=== PATIENT | male | born 1960 | race Caucasian/White ===

== ENCOUNTER 2017-08-22 07:22 | Inpatient (IN) | payer OTHER ==
[~2017-08-22] VITALS: Ht 167.6 cm; Wt 46.7 kg
[2017-08-22] MEDS ORDERED: LACTATED RINGERS 1,000 ML IV SCH (08:11)
[2017-08-22] MEDS ORDERED: LIDOCAINE 1%, 2ML SQ PRN (08:30)
[2017-08-22] MEDS ORDERED: MIDAZOLAM 1 MG/ML, 2ML ONE (08:32)
[2017-08-22] MEDS ORDERED: FENTANYL PF 250 MCG/5ML ONE (08:32)
[2017-08-22] MEDS ORDERED: LABETALOL 5MG/ML, 20ML IV PRN (09:00)
[2017-08-22] MEDS ORDERED: METOCLOPRAMIDE 5 MG/ML, 2ML IV PRN (09:00)
[2017-08-22] MEDS ORDERED: OXYcodone 5 MG/5 ML ORAL.SOL UDC PO PRN (09:00)
[2017-08-22] MEDS ORDERED: ACETAMINOPHEN 325 MG TABLET PO PRN (09:00)
[2017-08-22] MEDS ORDERED: hydrALAzine 20 MG/ML, 1ML IV PRN (09:00)
[2017-08-22] MEDS ORDERED: ONDANSETRON 2MG/ML, 2ML IVPush PRN (09:00)
[2017-08-22] MEDS ORDERED: HYDROmorphone 1 MG/ML, 1ML IV PRN (09:00)
[2017-08-22] MEDS ORDERED: FENTANYL PF 100 MCG/2ML IV PRN (09:00)
[2017-08-22] MEDS ORDERED: EPINEPHRINE 1 MG/ML, 1ML ONE (09:07)
[2017-08-22] MEDS ORDERED: BUPIVACAINE/PF 0.5% ONE (09:07)
[2017-08-22] MEDS ORDERED: ONDANSETRON 2MG/ML, 2ML ONE (09:43)
[2017-08-22] MEDS ORDERED: ROCURONIUM 10 MG/ML,10ML ONE (09:43)
[2017-08-22] MEDS ORDERED: CEFAZOLIN 1,000 MG ONE (09:43)
[2017-08-22] MEDS ORDERED: PROPOFOL 10 MG/ML, 20ML ONE (09:43)
[2017-08-22] MEDS ORDERED: DEXAMETHASONE 4 MG/ML, 1ML ONE (09:43)
[2017-08-22] MEDS ORDERED: OMNIPAQUE 350 MG/ML, 50 ML BOTTLE ONE (12:14)
[2017-08-22] MEDS ORDERED: KETOROLAC 30 MG/1 ML IV PRN (13:30)
[2017-08-22] MEDS ORDERED: ONDANSETRON 2MG/ML, 2ML IV PRN (13:30)
[2017-08-22] MEDS ORDERED: CEFOTETAN PMX 1GM/50ML 50 ML IVPB SCH (13:30)
[2017-08-22] MEDS ORDERED: morphine SULFATE 10 MG/ML, 1ML IV PRN (14:00)
[2017-08-22] MEDS ORDERED: ACETAMINOPHEN 325 MG TABLET ONE (15:34)
[2017-08-22] MEDS: POTASSIUM CHLORIDE 20 MEQ in D5%-0.45% NACL 1,000 ML IV SCH (15:42)
[2017-08-22] MEDS: CEFOTETAN PMX 1GM/50ML 50 ML IVPB SCH (15:42)
[2017-08-22] MEDS: ACETAMINOPHEN 650 MG/20.3 ML UDC PO SCH ×2 (15:59→22:03)
[2017-08-22] MEDS ORDERED: LACTATED RINGERS 1,000 ML IVBOLUS ONE (17:30)
[2017-08-22 20:11] VITALS: BP 93/62
[2017-08-23 00:02] VITALS: BP 88/58
[2017-08-23] MEDS: ACETAMINOPHEN 650 MG/20.3 ML UDC PO SCH ×4 (03:31→19:45)
[2017-08-23] MEDS: CEFOTETAN PMX 1GM/50ML 50 ML IVPB SCH (03:31)
[2017-08-23 03:40] VITALS: BP 96/60
[2017-08-23] MEDS ORDERED: BUPIVACAINE/PF 0.5% ONE (07:08)
[2017-08-23] MEDS ORDERED: EPINEPHRINE 1 MG/ML, 1ML ONE (07:08)
[2017-08-23] MEDS ORDERED: HEPARIN 1,000 UNITS/ML, 10ML ONE (07:08)
[2017-08-23] MEDS ORDERED: SODIUM CHLORIDE 0.9% 100 ML ONE (07:29)
[2017-08-23] MEDS ORDERED: ONDANSETRON 2MG/ML, 2ML IVPush PRN (07:30)
[2017-08-23] MEDS ORDERED: morphine SULFATE 10 MG/ML, 1ML IV PRN (07:30)
[2017-08-23] MEDS ORDERED: FENTANYL PF 100 MCG/2ML IV PRN (07:30)
[2017-08-23] MEDS ORDERED: MEPERIDINE/PF 25MG/0.5ML IVPush PRN (07:30)
[2017-08-23] MEDS ORDERED: PROPOFOL 10 MG/ML, 20ML ONE (07:39)
[2017-08-23] MEDS ORDERED: SUCCINYLCHOLINE 20 MG/ML, 10ML ONE ×2 (07:39→12:00)
[2017-08-23] MEDS ORDERED: ROCURONIUM 10 MG/ML,10ML ONE (07:39)
[2017-08-23] MEDS ORDERED: CEFOTETAN PMX 1GM/50ML 50 ML ONE (07:55)
[2017-08-23] MEDS: POTASSIUM CHLORIDE 20 MEQ in D5%-0.45% NACL 1,000 ML IV SCH (08:30)
[2017-08-23] MEDS ORDERED: FENTANYL PF 100 MCG/2ML ONE (08:41)
[2017-08-23] MEDS ORDERED: ALBUTEROL SULFATE 2.5 MG/3 ML ONE (09:40)
[2017-08-23] MEDS ORDERED: OXYcodone 5 MG/5 ML ORAL.SOL UDC ONE (10:35)
[2017-08-23] MEDS ORDERED: ACETAMINOPHEN 650 MG/20.3 ML UDC ONE (10:35)
[2017-08-23] MEDS ORDERED: GASTROGRAFIN 120 ML SOLN PO ONE (10:54)
[2017-08-23] MEDS ORDERED: MIDAZOLAM 1 MG/ML, 2ML ONE (12:00)
[2017-08-23] MEDS ORDERED: ETOMIDATE 40 MG/20 ML ONE (12:00)
[2017-08-23] MEDS ORDERED: PROPOFOL 10 MG/ML, 100ML IV ONE (12:00)
[2017-08-23] MEDS ORDERED: ALBUTEROL/IPRATROPIUM 2.5MG/0.5MG, 3 ML ONE (12:07)
[2017-08-23 13:12] LABS: FIO2 100 %
[2017-08-23] MEDS ORDERED: PROPOFOL 100 ML IV PRN (13:41)
[2017-08-23] MEDS ORDERED: NOREPINEPHRINE 4 MG in SODIUM CHLORIDE 0.9% 246 ML IV PRN (13:41)
[2017-08-23] MEDS ORDERED: LIDOCAINE-MPF 1%, 2ML ENDO PRN (14:00)
[2017-08-23] MEDS ORDERED: MIDAZOLAM 1 MG/ML, 2ML IVPush ONE (14:00)
[2017-08-23] MEDS ORDERED: LACTULOSE 20 GM/30 ML UDC NG PRN (14:00)
[2017-08-23] MEDS ORDERED: SENNOSIDES 8.8 MG/5 ML ORAL SOL NG PRN (14:00)
[2017-08-23] MEDS ORDERED: SENNA/DOCUSATE TABLET NG PRN (14:00)
[2017-08-23] MEDS ORDERED: ETOMIDATE 20 MG/10 ML IVPush ONE (14:00)
[2017-08-23] MEDS ORDERED: PHARMACY MAY ADJ FOR RENAL FX MC SCH (14:00)
[2017-08-23] MEDS ORDERED: BISACODYL 10 MG SUPP PR PRN (14:00)
[2017-08-23 14:06] LABS: MICROSCOPIC NOT IND
[2017-08-23 14:07] LABS: CULTURE INDICATED? NO
[2017-08-23 14:22] LABS: MEAN CORPUSCULAR HEMOGLOBIN 33.2 pg (27.5-34.5); MEAN CORPUSCULAR HGB CONC 33.3 g/dL (33.2-36.2); MEAN CORPUSCULAR VOLUME 99.6 fL (81-97); MEAN PLATELET VOLUME 10.3 fL (7.4-10.4); PLATELET COUNT 157 x10^3/uL (130-400); RED BLOOD COUNT 4.77 x10^6/uL (4.38-5.82); RED CELL DISTRIBUTION WIDTH 13.6 % (9.4-14.8)
[2017-08-23 14:43] LABS: MD YES
[2017-08-23 14:46] LABS: BAND#(MANUAL) 1.54 x10^3/uL; BANDS%(MANUAL) 10 % (0-7); LYMPH#(MANUAL) 0.15 x10^3/uL (1-3.4); LYMPHS% (MANUAL) 1 % (22-44); METAMYELOCYTES# (MANUAL) 0.15 x10^3/uL (0-0); METAMYELOCYTES% (MANUAL) 1 % (0-1); SEG#(MANUAL) 13.24 x10^3/uL (1.8-6.8); SEGS% (MANUAL) 86 % (42-75)
[2017-08-23 14:47] LABS: <PLATELET ESTIMATE> ADEQUATE; <PLT MORPHOLOGY> NORMAL PLT MORPH; <RBC MORPHOLOGY> NORMAL; MONOS#(MANUAL) 0.31 x10^3/uL (0.3-2.7); MONOS% (MANUAL) 2 % (2-9)
[2017-08-23] MEDS: AMPICILLIN/SULBACTAM 3 GM in SODIUM CHLORIDE 0.9% 100 ML IV SCH ×2 (15:00→19:40)
[2017-08-23 15:22] LABS: ALANINE AMINOTRANSFERASE 14 U/L (12-78); ALBUMIN 2.4 g/dL (3.4-5.0); ANION GAP 9 mmol/L (5-15); CALCIUM 8.1 mg/dL (8.5-10.1); CHLORIDE 104 mmol/L (98-107)
[2017-08-23 15:25] LABS: ALKALINE PHOSPHATASE 46 U/L (45-117); BILIRUBIN,TOTAL 0.7 mg/dL (0.2-1.0); CREATININE 0.88 mg/dL (0.7-1.3); TOTAL PROTEIN 6.2 g/dL (6.4-8.2)
[2017-08-23] MEDS ORDERED: MAGNESIUM SULFATE PMX 2GM/50ML 50 ML IV ONE (17:00)
[2017-08-23] MEDS: NS + 20MEQ KCL 1,000 ML IV SCH (19:16)
[2017-08-23] MEDS: ENOXAPARIN 40 MG/0.4 ML SQ SCH (19:45)
[2017-08-24] MEDS: AMPICILLIN/SULBACTAM 3 GM in SODIUM CHLORIDE 0.9% 100 ML IV SCH ×4 (02:19→20:47)
[2017-08-24] MEDS: ACETAMINOPHEN 650 MG/20.3 ML UDC PO SCH ×4 (05:49→20:50)
[2017-08-24] MEDS: NS + 20MEQ KCL 1,000 ML IV SCH ×2 (06:15→20:47)
[2017-08-24 06:51] LABS: BASOPHILS # (AUTO) 0.03 x10^3/uL (0-0.1); BASOPHILS % (AUTO) 0 % (0-1); EOSINOPHILS # (AUTO) 0.23 x10^3/uL (0-0.4); EOSINOPHILS % (AUTO) 2 % (1-7); LYMPHOCYTES # (AUTO) 0.43 x10^3/uL (1-3.4); LYMPHOCYTES % (AUTO) 4 % (22-44); MD NO; MEAN CORPUSCULAR HEMOGLOBIN 33.2 pg (27.5-34.5); MEAN CORPUSCULAR HGB CONC 33.5 g/dL (33.2-36.2); MEAN CORPUSCULAR VOLUME 99.1 fL (81-97); MEAN PLATELET VOLUME 9.7 fL (7.4-10.4); MONOCYTES # (AUTO) 0.52 x10^3/uL (0.2-0.8); MONOCYTES % (AUTO) 5 % (2-9); NEUTROPHILS # (AUTO) 10.22 x10^3/uL (1.8-6.8); NEUTROPHILS % (AUTO) 89 % (42-75); PLATELET COUNT 145 x10^3/uL (130-400); RED BLOOD COUNT 4.02 x10^6/uL (4.38-5.82); RED CELL DISTRIBUTION WIDTH 13.4 % (9.4-14.8)
[2017-08-24 06:56] LABS: ANION GAP 2 mmol/L (5-15); CALCIUM 7.7 mg/dL (8.5-10.1); CHLORIDE 110 mmol/L (98-107); CREATININE 0.58 mg/dL (0.7-1.3)
[2017-08-24] MEDS: PANTOPRAZOLE 40 MG IV IV SCH (08:51)
[2017-08-24] MEDS ORDERED: SODIUM CHLORIDE 0.9% 500 ML IV ONE (09:00)
[2017-08-24] MEDS ORDERED: SODIUM CHLORIDE 0.9% 500 ML IV SCH (10:30)
[2017-08-24] MEDS ORDERED: ALBUTEROL SULFATE 2.5 MG/3 ML NPPB PRN (14:00)
[2017-08-24] MEDS: ENOXAPARIN 40 MG/0.4 ML SQ SCH (20:50)
[2017-08-25] MEDS: AMPICILLIN/SULBACTAM 3 GM in SODIUM CHLORIDE 0.9% 100 ML IV SCH ×4 (04:19→20:23)
[2017-08-25] MEDS: ACETAMINOPHEN 650 MG/20.3 ML UDC PO SCH ×4 (04:22→22:03)
[2017-08-25 04:29] LABS: BASOPHILS # (AUTO) 0.01 x10^3/uL (0-0.1); BASOPHILS % (AUTO) 0 % (0-1); EOSINOPHILS # (AUTO) 0.46 x10^3/uL (0-0.4); EOSINOPHILS % (AUTO) 5 % (1-7); LYMPHOCYTES # (AUTO) 0.59 x10^3/uL (1-3.4); LYMPHOCYTES % (AUTO) 7 % (22-44); MD NO; MEAN CORPUSCULAR HEMOGLOBIN 33.3 pg (27.5-34.5); MEAN CORPUSCULAR HGB CONC 33.3 g/dL (33.2-36.2); MEAN CORPUSCULAR VOLUME 99.9 fL (81-97); MEAN PLATELET VOLUME 9.8 fL (7.4-10.4); MONOCYTES # (AUTO) 0.51 x10^3/uL (0.2-0.8); MONOCYTES % (AUTO) 6 % (2-9); NEUTROPHILS # (AUTO) 7.51 x10^3/uL (1.8-6.8); NEUTROPHILS % (AUTO) 83 % (42-75); PLATELET COUNT 139 x10^3/uL (130-400); RED CELL DISTRIBUTION WIDTH 13.4 % (9.4-14.8)
[2017-08-25 04:39] LABS: ANION GAP 4 mmol/L (5-15); CALCIUM 7.6 mg/dL (8.5-10.1); CHLORIDE 114 mmol/L (98-107); CREATININE 0.38 mg/dL (0.7-1.3)
[2017-08-25] MEDS: NS + 20MEQ KCL 1,000 ML IV SCH ×2 (08:42→20:05)
[2017-08-25] MEDS: PANTOPRAZOLE 40 MG IV IV SCH (09:00)
[2017-08-25] MEDS ORDERED: ALBUTEROL/IPRATROPIUM 2.5MG/0.5MG, 3 ML NPPB PRN (09:30)
[2017-08-25 17:03] VITALS: BP 93/58
[2017-08-25] MEDS: ALBUTEROL/IPRATROPIUM 2.5MG/0.5MG, 3 ML NPPB SCH (20:00)
[2017-08-25] MEDS: ENOXAPARIN 40 MG/0.4 ML SQ SCH (20:37)
[2017-08-25 21:09] VITALS: BP 89/60
[2017-08-26] MEDS: AMPICILLIN/SULBACTAM 3 GM in SODIUM CHLORIDE 0.9% 100 ML IV SCH ×4 (01:45→20:24)
[2017-08-26 03:39] VITALS: BP 99/66
[2017-08-26] MEDS: ACETAMINOPHEN 650 MG/20.3 ML UDC PO SCH ×4 (03:47→22:53)
[2017-08-26 05:37] LABS: BASOPHILS # (AUTO) 0.03 x10^3/uL (0-0.1); BASOPHILS % (AUTO) 1 % (0-1); EOSINOPHILS # (AUTO) 0.33 x10^3/uL (0-0.4); EOSINOPHILS % (AUTO) 5 % (1-7); LYMPHOCYTES # (AUTO) 0.61 x10^3/uL (1-3.4); LYMPHOCYTES % (AUTO) 9 % (22-44); MD NO; MEAN CORPUSCULAR HEMOGLOBIN 33.1 pg (27.5-34.5); MEAN CORPUSCULAR HGB CONC 32.9 g/dL (33.2-36.2); MEAN CORPUSCULAR VOLUME 100.8 fL (81-97); MEAN PLATELET VOLUME 9.7 fL (7.4-10.4); MONOCYTES # (AUTO) 0.51 x10^3/uL (0.2-0.8); MONOCYTES % (AUTO) 8 % (2-9); NEUTROPHILS # (AUTO) 5.12 x10^3/uL (1.8-6.8); NEUTROPHILS % (AUTO) 78 % (42-75); PLATELET COUNT 208 x10^3/uL (130-400); RED BLOOD COUNT 4.28 x10^6/uL (4.38-5.82)
[2017-08-26 05:49] LABS: CHLORIDE 114 mmol/L (98-107)
[2017-08-26 05:59] LABS: ANION GAP 5 mmol/L (5-15); CALCIUM 7.8 mg/dL (8.5-10.1); CREATININE 0.49 mg/dL (0.7-1.3)
[2017-08-26] MEDS: ALBUTEROL/IPRATROPIUM 2.5MG/0.5MG, 3 ML NPPB SCH ×4 (07:00→19:33)
[2017-08-26 07:53] VITALS: BP 97/68
[2017-08-26] MEDS: PANTOPRAZOLE 40 MG IV IV SCH (07:59)
[2017-08-26] MEDS: NS + 20MEQ KCL 1,000 ML IV SCH ×2 (08:50→20:45)
[2017-08-26 15:52] VITALS: BP 100/68
[2017-08-26 20:31] VITALS: BP 102/67
[2017-08-26] MEDS: ENOXAPARIN 40 MG/0.4 ML SQ SCH (20:45)
[2017-08-27 02:15] VITALS: BP 101/62
[2017-08-27] MEDS: AMPICILLIN/SULBACTAM 3 GM in SODIUM CHLORIDE 0.9% 100 ML IV SCH ×3 (02:22→14:20)
[2017-08-27] MEDS: ACETAMINOPHEN 650 MG/20.3 ML UDC PO SCH ×2 (05:03→10:20)
[2017-08-27 05:24] LABS: BASOPHILS # (AUTO) 0.03 x10^3/uL (0-0.1); BASOPHILS % (AUTO) 0 % (0-1); EOSINOPHILS # (AUTO) 0.35 x10^3/uL (0-0.4); EOSINOPHILS % (AUTO) 5 % (1-7); LYMPHOCYTES # (AUTO) 0.61 x10^3/uL (1-3.4); LYMPHOCYTES % (AUTO) 8 % (22-44); MD NO; MEAN CORPUSCULAR HEMOGLOBIN 33.3 pg (27.5-34.5); MEAN CORPUSCULAR HGB CONC 33.4 g/dL (33.2-36.2); MEAN CORPUSCULAR VOLUME 99.9 fL (81-97); MEAN PLATELET VOLUME 9.4 fL (7.4-10.4); MONOCYTES # (AUTO) 0.51 x10^3/uL (0.2-0.8); MONOCYTES % (AUTO) 7 % (2-9); NEUTROPHILS # (AUTO) 6.11 x10^3/uL (1.8-6.8); NEUTROPHILS % (AUTO) 80 % (42-75); PLATELET COUNT 211 x10^3/uL (130-400); RED BLOOD COUNT 4.16 x10^6/uL (4.38-5.82); RED CELL DISTRIBUTION WIDTH 13.5 % (9.4-14.8)
[2017-08-27 05:37] LABS: ANION GAP 3 mmol/L (5-15); CALCIUM 7.7 mg/dL (8.5-10.1); CHLORIDE 112 mmol/L (98-107); CREATININE 0.44 mg/dL (0.7-1.3)
[2017-08-27] MEDS: NS + 20MEQ KCL 1,000 ML IV SCH (06:36)
[2017-08-27 06:52] VITALS: BP 100/65
[2017-08-27] MEDS: ALBUTEROL/IPRATROPIUM 2.5MG/0.5MG, 3 ML NPPB SCH ×3 (07:50→15:40)
[2017-08-27] MEDS: PANTOPRAZOLE 40 MG IV IV SCH (10:20)
[2017-08-27 12:18] VITALS: BP 102/67
== END 2017-08-27 16:38 | disposition home health service (06) | DRG 344 ==
LOC: OUT 07:22 → 4NOR 12:19 → OUT 12:55 → CCU 08-23 11:56 → 4NOR 08-25 16:55
PROVIDERS: ADMIT Surgery; ATTEND Surgery
PROC: 0DHA3UZ Insertion of Feeding Device into Jejunum, Percutaneous Approach (ICD-10-PCS; 2017-08-22)
PROC: 0JH60WZ Insertion of Totally Implantable Vascular Access Device into Chest Subcutaneous Tissue and Fascia, Open Approach (ICD-10-PCS; 2017-08-22)
PROC: 02HV33Z Insertion of Infusion Device into Superior Vena Cava, Percutaneous Approach (ICD-10-PCS; 2017-08-22)
PROC: B5181ZA Fluoroscopy of Superior Vena Cava using Low Osmolar Contrast, Guidance (ICD-10-PCS; 2017-08-22)
PROC: 0DPD3UZ Removal of Feeding Device from Lower Intestinal Tract, Percutaneous Approach (ICD-10-PCS; 2017-08-23)
PROC: 0B9F8ZZ Drainage of Right Lower Lung Lobe, Via Natural or Artificial Opening Endoscopic (ICD-10-PCS; 2017-08-23)
PROC: B548ZZA Ultrasonography of Superior Vena Cava, Guidance (ICD-10-PCS; 2017-08-23)
PROC: 0DHA3UZ Insertion of Feeding Device into Jejunum, Percutaneous Approach (ICD-10-PCS; 2017-08-23)
PROC: 0BC78ZZ Extirpation of Matter from Left Main Bronchus, Via Natural or Artificial Opening Endoscopic (ICD-10-PCS; 2017-08-23)
PROC: 0B938ZZ Drainage of Right Main Bronchus, Via Natural or Artificial Opening Endoscopic (ICD-10-PCS; 2017-08-23)
PROC: 5A1935Z Respiratory Ventilation, Less than 24 Consecutive Hours (ICD-10-PCS; 2017-08-23)
PROC: 0BH17EZ Insertion of Endotracheal Airway into Trachea, Via Natural or Artificial Opening (ICD-10-PCS; 2017-08-23)
PROC: 02HV33Z Insertion of Infusion Device into Superior Vena Cava, Percutaneous Approach (ICD-10-PCS; principal; 2017-08-23 07:30)
DX: C15.3 Malignant neoplasm of upper third of esophagus (principal); J69.0 Pneumonitis due to inhalation of food and vomit; J96.00 Acute respiratory failure, unspecified whether with hypoxia or hypercapnia; R64 Cachexia; C78.01 Secondary malignant neoplasm of right lung; T17.890A Other foreign object in other parts of respiratory tract causing asphyxiation, initial encounter; T79.7XXA Traumatic subcutaneous emphysema, initial encounter; Z68.1 Body mass index [BMI] 19.9 or less, adult; X58.XXXA Exposure to other specified factors, initial encounter; Z93.4 Other artificial openings of gastrointestinal tract status; Z72.0 Tobacco use; Z85.01 Personal history of malignant neoplasm of esophagus; Y93.89 Activity, other specified; Y92.89 Other specified places as the place of occurrence of the external cause; Y99.8 Other external cause status
CPT/HCPCS: 31622; 36415; 36569; 36600; 71045; 74018; 76937; 77001; 80048; 80053; 81003; 82533; 82803; 83605; 83735; 84478; 85025; 87040; 87070; 87081; 87102; 87205; 94002; 94003; 94640; B4087; J0171; J0295; J0690; J1100; J1644; J1650; J2250; J2405; J2704; J3010; J3480; J3490; J7620; Q9963; Q9967; C1751; C1788; C9113; J0330; J2270; J3475; J7040; J7120; S0074

== ENCOUNTER → 2017-09-14 | Outpatient (CLI) | payer OTHER | END | disposition home or self-care (01) | LOC: PETCFH 10:33 | PROVIDERS: ATTEND Surgery | DX: C77.1 Secondary and unspecified malignant neoplasm of intrathoracic lymph nodes (principal); C79.89 Secondary malignant neoplasm of other specified sites; R91.8 Other nonspecific abnormal finding of lung field; C15.9 Malignant neoplasm of esophagus, unspecified | CPT/HCPCS: 78815; A9552 ==